=== PATIENT | male | born 1970 | race Caucasian/White ===

== ENCOUNTER 2016-10-16 08:20 | Emergency (ER) | payer OTHER ==
[2016-10-16] MEDS ORDERED: CEFTRIAXONE 1 GM VIAL ONE (09:08)
[2016-10-16] MEDS ORDERED: SODIUM CHLORIDE 0.9% 100 ML IV ONE (09:09)
== END 2016-10-16 11:20 | disposition home or self-care (01) ==
LOC: ER 08:20
DX: L03.031 Cellulitis of right toe (principal); L03.115 Cellulitis of right lower limb; S91.111A Laceration without foreign body of right great toe without damage to nail, initial encounter; Z79.899 Other long term (current) drug therapy; Z79.82 Long term (current) use of aspirin; I10 Essential (primary) hypertension; E03.9 Hypothyroidism, unspecified; Z86.718 Personal history of other venous thrombosis and embolism; Z85.828 Personal history of other malignant neoplasm of skin
CPT/HCPCS: 36415; 73630; 80053; 85025; 85652; 96365; 96366; 99283; J0696